=== PATIENT | male | born 1945 | race Caucasian/White ===

== ENCOUNTER 2017-04-14 08:50 | Emergency (ER) | payer BC ==
--- NOTE | ~2017-04-14 | CT71 ---
[facility] A Service of [facility] RADIOLOGY TEXT RESULTS PATIENT: ANGEL YEE LOCATION: SED : 43 UNIT #: [id number] AGE: [address]: Padmaja Baker MD SEX: M ORDER DR: [id number] [address] [id number] E MR#: [id number] Acc #: [id number] NAME: ANGEL YEE. : 1945 SEX: M STUDY DATE/TIME: 04/14/2017 10:05 UNIT: SED ROOM: STUDY DESCRIPTION: CT Head Wo Contrast Attending Physician: Padmaja Baker M.D. Ordering Physician: Padmaja Baker M.D. Primary Care Physician: Opal Brown M.D. MEDICAL IMAGING REPORT This report is preliminary unless electronic signature is present. EXAM Head CT without contrast HISTORY Frontal headache over the eyes and radiating down the back of the neck beginning earlier this morning. TECHNIQUE Axial images were obtained without contrast. This CT exam was performed with one or more of the following radiation dose reduction techniques: automatic exposure control, adjustment of mA and/or kV according to patient size, and iterative reconstruction. FINDINGS Generalized atrophy is seen in the brain to a mild degree. Acute subarachnoid blood is seen predominately in the prepontine cistern. This extends up to the ambient cistern on the left and along the left side of the tentorium. It extends inferiorly along the medulla down to the foramen magnum. No intraaxial bleeding is seen. IMPRESSION Acute subarachnoid hemorrhage centered in the prepontine cistern and extending more to the left than to the right. Consider CTA for further evaluation for aneurysm. I favor venous bleed given the location of the blood. Generalized atrophy is also seen to a mild degree. Dictated by... Nikita Kwon M.D. THIS IS AN ELECTRONICALLY VERIFIED REPORT Nikita Kwon M.D. at 04/16/2017 4:55 PM [facility] A Service of [facility] RADIOLOGY TEXT RESULTS PATIENT: ANGEL YEE LOCATION: [facility] [place] : 43 UNIT #: [id number] AGE: [address]: Padmaja Baker MD SEX: M ORDER DR: Enrique TD: 04/15/2017 08:08 JOB #: [id number] MEDICAL IMAGING REPORT Page 1 of 1
[~2017-04-14 08:50] MED LIST: CLOPIDOGREL75 MG PO; FISH OIL 1,001000 M1 PO; IRON236 MG PO; LIPITOR40 MG PO; RAMIPRIL PO; VIT D3 PO
[2017-04-14] MEDS ORDERED: ASPIRIN81 M2 (09:00)
[2017-04-14] MEDS ORDERED: PANTOPRAZOLE SO40 MG PO (09:00)
[2017-04-14] MEDS ORDERED: ZYLOPRIM100 MG (09:00)
[2017-04-14] MEDS ORDERED: LATANOPROST2.5 ML (09:01)
[2017-04-14 09:51] LABS: BASOPHIL% 0.3 % (0-2.5); EOSINOPHIL% 0.2 % (0.0-7.0); HEMATOCRIT 28.2 % (38.0-50.0); HEMOGLOBIN 9.8 gm/dL (13.0-16.0); LYMPHOCYTE# 0.4 X10e3 (1.0-3.5); LYMPHOCYTE% 5.8 % (17.0-45.0); MEAN CELL VOLUME 113.8 FL (83-96); MEAN CORPUSCULAR HEMOGLOBIN 39.7 PG (28-34); MEAN CORPUSCULAR HGB CONC 34.9 g/dL (30-36); MEAN PLATELET VOLUME 6.8 FL (6.5-11.5); MONOCYTE# 0.2 X10e3 (0-1.0); MONOCYTE% 3.2 % (3.0-12.0); NEUTROPHIL# 6.4 X10e3 (1.5-7.1); NEUTROPHIL% 90.5 % (40-75); PLATELET COUNT 213 X10e3 (140-420); RED BLOOD COUNT 2.47 X10e (3.90-5.60)
[2017-04-14 09:52] LABS: DIFF IND NO
[2017-04-14 10:06] LABS: BUN/CREATININE RATIO 32.5; CALCIUM SERUM 8.6 mg/dL (8.4-10.2); CREATININE SERUM 0.8 mg/dL (0.6-1.4); GLOM FILT RATE Estimated 88.7 mL/min (>60); POTASSIUM 3.7 mmol/L (3.5-5.1)
[2017-04-14 10:16] LABS: PROTHROMBIN TIME (PATIENT) 11.6 SECONDS (9.5-12.4)
[2017-04-14 10:23] LABS: PARTIAL THROMBOPLASTIN TIME 26.6 SECONDS (25.6-38.1)
== END 2017-04-14 11:05 | disposition hospice, home (50) ==
LOC: SED 08:50
PROVIDERS: Student in an Organized Health Care Education/Training Program
DX: I60.9 Nontraumatic subarachnoid hemorrhage, unspecified (principal); I25.10 Atherosclerotic heart disease of native coronary artery without angina pectoris; J44.9 Chronic obstructive pulmonary disease, unspecified; Z95.1 Presence of aortocoronary bypass graft; Z95.5 Presence of coronary angioplasty implant and graft; Z79.899 Other long term (current) drug therapy
CPT/HCPCS: 36415; 70450; 80048; 85025; 85610; 85730; 96374; 96375; 99285; J2270; J2405